=== PATIENT | female | born 1980 | race African-American/Black ===

== ENCOUNTER 2018-09-24 22:50 | Emergency (ER) | payer OTHER ==
[~2018-09-24] VITALS: Ht 177.8 cm; Wt 128.8 kg
[~2018-09-24 22:50] MED LIST: AMOXICILLIN 50500 MG PO; HYDROCODONE-AP1 EAC6 PO; IBUPROFEN 800800 M1 PO
[2018-09-24] MEDS ORDERED: AMOXICILLIN 50500 M1 PO (23:04)
[2018-09-24] MEDS ORDERED: NORCO 5-325 TA1 EACH PO (23:04)
[2018-09-24] MEDS ORDERED: COZAAR 25 MG TA25 M1 PO (23:31)
[2018-09-24] MEDS ORDERED: CYMBALTA60 MG PO (23:32)
[2018-09-24 23:50] VITALS: BP 160/82
[2018-09-25] MEDS ORDERED: AMOXICILLIN 50500 MG PO (18:10)
[2018-09-25] MEDS ORDERED: NORCO 5-325 TA1 EACH PO (18:10)
== END 2018-09-24 23:50 | disposition home or self-care (01) ==
LOC: ER 22:50
DX: K08.89 Other specified disorders of teeth and supporting structures (principal); I10 Essential (primary) hypertension; M79.7 Fibromyalgia

== ENCOUNTER 2018-09-25 17:22 | Emergency (ER) | payer OTHER ==
[~2018-09-25] VITALS: Ht 177.8 cm; Wt 128.8 kg
[~2018-09-25 17:22] MED LIST changes: +AMOXICILLIN 50500 M1 PO; +COZAAR 25 MG TA25 M1 PO; +CYMBALTA60 MG PO; +NORCO 5-325 TA1 EACH PO
[2018-09-25 17:23] VITALS: BP 128/104
[2018-09-25] MEDS ORDERED: NORCO 5-325 TA1 EACH PO (18:10)
[2018-09-25] MEDS ORDERED: AMOXICILLIN 50500 MG PO (18:10)
== END 2018-09-25 18:24 | disposition home or self-care (01) ==
LOC: ER 17:22
DX: K08.89 Other specified disorders of teeth and supporting structures (principal); R51 Headache; I10 Essential (primary) hypertension; M79.7 Fibromyalgia